=== PATIENT | male | born 1965 | race Caucasian/White ===

== ENCOUNTER 2017-05-22 14:55 | Inpatient (IN) | payer OTHER ==
[~2017-05-22] VITALS: Ht 195.6 cm; Wt 171.4 kg
[2017-05-22 15:44] LABS: MEAN CORPUSCULAR HEMOGLOBIN 27.8 pg (27.5-34.5); MEAN CORPUSCULAR HGB CONC 33.6 g/dL (33.2-36.2); MEAN CORPUSCULAR VOLUME 82.7 fL (81-97); MEAN PLATELET VOLUME 8.7 fL (7.4-10.4); PLATELET COUNT 253 x10^3/uL (130-400); RED BLOOD COUNT 5.66 x10^6/uL (4.38-5.82)
[2017-05-22 15:56] LABS: ALANINE AMINOTRANSFERASE 42 U/L (12-78); ALBUMIN 3.7 g/dL (3.4-5.0); ANION GAP 10 mmol/L (5-15); CALCIUM 7.9 mg/dL (8.5-10.1); CHLORIDE 106 mmol/L (98-107)
[2017-05-22 16:02] LABS: MD YES
[2017-05-22 16:04] LABS: BAND#(MANUAL) 0.97 x10^3/uL; BANDS%(MANUAL) 8 % (0-7); METAMYELOCYTES# (MANUAL) 0.24 x10^3/uL (0-0); METAMYELOCYTES% (MANUAL) 2 % (0-1); MONOS#(MANUAL) 0.12 x10^3/uL (0.3-2.7); MONOS% (MANUAL) 1 % (2-9)
[2017-05-22 16:05] LABS: <PLATELET ESTIMATE> ADEQUATE; <PLT MORPHOLOGY> NORMAL PLT MORPH; <RBC MORPHOLOGY> NORMAL; LYMPH#(MANUAL) 0.12 x10^3/uL (1-3.4); LYMPHS% (MANUAL) 1 % (22-44); SEGS% (MANUAL) 88 % (42-75)
[2017-05-22] MEDS ORDERED: MORPHINE SULFATE 4 MG/ML, 1ML ONE (16:07)
[2017-05-22] MEDS ORDERED: ONDANSETRON 2MG/ML, 2ML ONE (16:07)
[2017-05-22 16:17] LABS: ALKALINE PHOSPHATASE 90 U/L (45-117); BILIRUBIN,TOTAL 0.8 mg/dL (0.2-1.0); CREATININE 1.18 mg/dL (0.7-1.3); TOTAL PROTEIN 7.9 g/dL (6.4-8.2); TROPONIN I < 0.015 ng/mL (0.000-0.045)
[2017-05-22] MEDS ORDERED: CEFTRIAXONE PMX 1GM/50ML 50 ML ONE (16:24)
[2017-05-22] MEDS ORDERED: ONDANSETRON 2MG/ML, 2ML IVPush ONE (16:30)
[2017-05-22] MEDS ORDERED: CEFTRIAXONE PMX 1GM/50ML 50 ML IV ONE (16:30)
[2017-05-22] MEDS ORDERED: AZITHROMYCIN 500 MG in SODIUM CHLORIDE 0.9% 250 ML IV ONE (16:30)
[2017-05-22] MEDS ORDERED: morphine SULFATE 10 MG/ML, 1ML IVPush ONE (16:30)
[2017-05-22] MEDS ORDERED: PROMETHAZINE 25 MG/ML, 1ML ONE (17:55)
[2017-05-22] MEDS ORDERED: PROMETHAZINE 25 MG/ML, 1ML IM ONE (18:00)
[2017-05-22] MEDS ORDERED: ONDANSETRON ODT 4 MG PO PRN (18:30)
[2017-05-22] MEDS ORDERED: ONDANSETRON 2MG/ML, 2ML IVPush PRN (18:30)
[2017-05-22] MEDS ORDERED: GUAIFENESIN/DM 200-20MG, 10ML UDC PO PRN (18:30)
[2017-05-22] MEDS ORDERED: PROMETHAZINE 25 MG/ML, 1ML IM PRN (18:30)
[2017-05-22] MEDS ORDERED: METOCLOPRAMIDE 5 MG/ML, 2ML IVPush PRN (18:30)
[2017-05-22] MEDS ORDERED: LABETALOL 5MG/ML, 20ML IVPush PRN (18:30)
[2017-05-22] MEDS ORDERED: ENALAPRILAT 1.25 MG/ML, 2ML IVPush PRN (18:30)
[2017-05-22 19:20] VITALS: BP 131/81
[2017-05-22 19:38] VITALS: BP 131/81
[2017-05-22] MEDS: SODIUM CHLORIDE 0.9% 1,000 ML IV SCH (20:01)
[2017-05-22] MEDS: GUAIFENESIN 200 MG TABLET PO SCH (20:01)
[2017-05-22] MEDS: ENOXAPARIN 40 MG/0.4 ML SQ SCH (20:01)
[2017-05-22 21:58] LABS: CLOSTRIDIUM DIFFICILE ANTIGEN NEGATIVE; CLOSTRIDIUM DIFFICILE TOXIN NEGATIVE (Negative)
[2017-05-22] MEDS: DIPHENOXYLATE/ATROPINE TABLET PO PRN (23:36)
[2017-05-23 00:38] VITALS: BP 132/75
[2017-05-23 04:49] LABS: BASOPHILS # (AUTO) 0.01 x10^3/uL (0-0.1); BASOPHILS % (AUTO) 0 % (0-1); EOSINOPHILS % (AUTO) 0 % (1-7); LYMPHOCYTES # (AUTO) 0.55 x10^3/uL (1-3.4); LYMPHOCYTES % (AUTO) 6 % (22-44); MD NO; MEAN CORPUSCULAR HEMOGLOBIN 28.1 pg (27.5-34.5); MEAN CORPUSCULAR HGB CONC 34.1 g/dL (33.2-36.2); MEAN CORPUSCULAR VOLUME 82.5 fL (81-97); MEAN PLATELET VOLUME 8.7 fL (7.4-10.4); MONOCYTES # (AUTO) 0.58 x10^3/uL (0.2-0.8); MONOCYTES % (AUTO) 6 % (2-9); NEUTROPHILS # (AUTO) 8.65 x10^3/uL (1.8-6.8); NEUTROPHILS % (AUTO) 88 % (42-75); PLATELET COUNT 234 x10^3/uL (130-400); RED BLOOD COUNT 5.06 x10^6/uL (4.38-5.82); RED CELL DISTRIBUTION WIDTH 15.2 % (9.4-14.8)
[2017-05-23 04:54] LABS: CALCIUM 7.4 mg/dL (8.5-10.1); CHLORIDE 106 mmol/L (98-107)
[2017-05-23 05:00] LABS: ALANINE AMINOTRANSFERASE 34 U/L (12-78); ALBUMIN 3.3 g/dL (3.4-5.0); ALKALINE PHOSPHATASE 76 U/L (45-117); ANION GAP 8 mmol/L (5-15); BILIRUBIN,TOTAL 0.8 mg/dL (0.2-1.0); CREATININE 1.33 mg/dL (0.7-1.3); TOTAL PROTEIN 7.1 g/dL (6.4-8.2)
[2017-05-23] MEDS: GUAIFENESIN 200 MG TABLET PO SCH ×4 (05:31→20:05)
[2017-05-23] MEDS: DIPHENOXYLATE/ATROPINE TABLET PO PRN ×3 (05:31→18:38)
[2017-05-23 08:00] VITALS: BP 138/87
[2017-05-23] MEDS: SODIUM CHLORIDE 0.9% 1,000 ML IV SCH (09:20)
[2017-05-23 09:59] LABS: RAPID INFLUENZA A Negative (Negative); RAPID INFLUENZA B Negative (Negative)
[2017-05-23] MEDS ORDERED: MAGNESIUM SULFATE PMX 4GM/100M 100 ML IV ONE (11:00)
[2017-05-23] MEDS: POTASSIUM CHLORIDE 20 MEQ TAB.ER.PRT PO SCH ×2 (11:32→20:05)
[2017-05-23 14:30] VITALS: BP 144/72
[2017-05-23] MEDS: LOPERAMIDE 2 MG CAPSULE PO PRN ×2 (17:08→23:03)
[2017-05-23] MEDS: AZITHROMYCIN 500 MG in SODIUM CHLORIDE 0.9% 250 ML IV SCH (18:35)
[2017-05-23 19:46] VITALS: BP 151/97
[2017-05-23] MEDS: CEFTRIAXONE PMX 2GM/50ML 50 ML IV SCH (20:04)
[2017-05-23] MEDS: ENOXAPARIN 40 MG/0.4 ML SQ SCH (20:05)
[2017-05-24] MEDS: SODIUM CHLORIDE 0.9% 1,000 ML IV SCH ×3 (01:29→18:00)
[2017-05-24 03:30] VITALS: BP_SYST 118; BP_SYST 179; BP_DIAS 110; BP_DIAS 112
[2017-05-24] MEDS: DIPHENOXYLATE/ATROPINE TABLET PO PRN ×3 (03:42→14:01)
[2017-05-24 04:24] VITALS: BP 160/92
[2017-05-24 05:00] LABS: BASOPHILS # (AUTO) 0.01 x10^3/uL (0-0.1); BASOPHILS % (AUTO) 0 % (0-1); EOSINOPHILS # (AUTO) 0.02 x10^3/uL (0-0.4); EOSINOPHILS % (AUTO) 0 % (1-7); LYMPHOCYTES # (AUTO) 1.25 x10^3/uL (1-3.4); LYMPHOCYTES % (AUTO) 21 % (22-44); MD NO; MEAN CORPUSCULAR HEMOGLOBIN 28.1 pg (27.5-34.5); MEAN CORPUSCULAR HGB CONC 33.8 g/dL (33.2-36.2); MEAN CORPUSCULAR VOLUME 83.1 fL (81-97); MEAN PLATELET VOLUME 8.6 fL (7.4-10.4); MONOCYTES # (AUTO) 0.79 x10^3/uL (0.2-0.8); MONOCYTES % (AUTO) 13 % (2-9); NEUTROPHILS # (AUTO) 3.84 x10^3/uL (1.8-6.8); NEUTROPHILS % (AUTO) 65 % (42-75); PLATELET COUNT 220 x10^3/uL (130-400); RED BLOOD COUNT 4.83 x10^6/uL (4.38-5.82)
[2017-05-24 05:10] LABS: ALBUMIN 3.1 g/dL (3.4-5.0); CALCIUM 7.5 mg/dL (8.5-10.1); CHLORIDE 107 mmol/L (98-107)
[2017-05-24 05:22] VITALS: BP 138/62
[2017-05-24 05:24] LABS: ALANINE AMINOTRANSFERASE 36 U/L (12-78); ALKALINE PHOSPHATASE 77 U/L (45-117); ANION GAP 8 mmol/L (5-15); BILIRUBIN,TOTAL 0.4 mg/dL (0.2-1.0); CREATININE 1.06 mg/dL (0.7-1.3)
[2017-05-24] MEDS: GUAIFENESIN 200 MG TABLET PO SCH ×4 (05:28→20:12)
[2017-05-24] MEDS ORDERED: ACETAMINOPHEN 325 MG TABLET PO PRN (05:30)
[2017-05-24] MEDS: LOPERAMIDE 2 MG CAPSULE PO PRN ×3 (05:30→16:47)
[2017-05-24 07:19] VITALS: BP 133/82
[2017-05-24 11:26] LABS: MICROSCOPIC INDICATED
[2017-05-24 11:48] LABS: CULTURE INDICATED? NO
[2017-05-24 13:20] VITALS: BP 156/86
[2017-05-24] MEDS: CEFTRIAXONE PMX 2GM/50ML 50 ML IV SCH (17:16)
[2017-05-24] MEDS: LACTOBACILLUS 1GM/ PACKET PO SCH ×2 (18:00→20:12)
[2017-05-24] MEDS ORDERED: POTASSIUM PHOSPHATE 22 MEQ in SODIUM CHLORIDE 0.9% 500 ML IV ONE (18:00)
[2017-05-24] MEDS: AZITHROMYCIN 500 MG in SODIUM CHLORIDE 0.9% 250 ML IV SCH (18:06)
[2017-05-24 19:30] VITALS: BP 154/96
[2017-05-24] MEDS: ENOXAPARIN 40 MG/0.4 ML SQ SCH (20:12)
[2017-05-25 03:36] VITALS: BP 134/89
[2017-05-25 04:52] LABS: ANION GAP 9 mmol/L (5-15); CHLORIDE 107 mmol/L (98-107)
[2017-05-25] MEDS: GUAIFENESIN 200 MG TABLET PO SCH ×3 (04:52→16:00)
[2017-05-25 04:54] LABS: CREATININE 0.83 mg/dL (0.7-1.3)
[2017-05-25 07:30] VITALS: BP 143/90
[2017-05-25] MEDS: SODIUM CHLORIDE 0.9% 1,000 ML IV SCH ×2 (07:49→16:00)
[2017-05-25] MEDS: LACTOBACILLUS 1GM/ PACKET PO SCH ×2 (07:49→16:00)
[2017-05-25 14:33] VITALS: BP 169/107
[2017-05-25 14:38] VITALS: BP 162/94
[2017-05-25] MEDS ORDERED: ACET325T14 PO (16:00)
[2017-05-25] MEDS ORDERED: LOPE2CAP PO (16:00)
[2017-05-25] MEDS ORDERED: CEFD300C37 PO (16:00)
[2017-05-25] MEDS ORDERED: ACID1GRA3 PO (16:00)
[2017-05-25] MEDS ORDERED: AZIT500T PO (16:00)
[2017-05-25] MEDS ORDERED: LOSA25TA2 PO (16:02)
[2017-05-25] MEDS ORDERED: FLU VACC QS2017-18 (36MOS+) UP/PF 0.5 ML IM-VACC ONE (17:00)
[2017-05-25] MEDS ORDERED: PNEUMOCOCCAL 23 VACCINE IM-VACC ONE (17:00)
== END 2017-05-25 18:12 | disposition home or self-care (01) | DRG 871 ==
LOC: ED 17:30 → EDIP 17:31 → ED 17:55 → 3NW 19:10
PROVIDERS: ADMIT Internal Medicine Pulmonary Disease; ATTEND Internal Medicine Pulmonary Disease
DX: A41.9 Sepsis, unspecified organism (principal); G93.41 Metabolic encephalopathy; J96.01 Acute respiratory failure with hypoxia; N17.0 Acute kidney failure with tubular necrosis; I11.0 Hypertensive heart disease with heart failure; J18.9 Pneumonia, unspecified organism; I50.32 Chronic diastolic (congestive) heart failure; J44.0 Chronic obstructive pulmonary disease with (acute) lower respiratory infection; Z68.41 Body mass index [BMI] 40.0-44.9, adult; E66.01 Morbid (severe) obesity due to excess calories; E83.42 Hypomagnesemia; E86.0 Dehydration; E87.6 Hypokalemia; G47.33 Obstructive sleep apnea (adult) (pediatric); I35.1 Nonrheumatic aortic (valve) insufficiency; Z91.14 Patient's other noncompliance with medication regimen; Z79.899 Other long term (current) drug therapy; Z90.49 Acquired absence of other specified parts of digestive tract; Z88.0 Allergy status to penicillin; Z88.2 Allergy status to sulfonamides
CPT/HCPCS: 36415; 70450; 71045; 80048; 80053; 81001; 83605; 83690; 83735; 83880; 84100; 84145; 84443; 84484; 85025; 87040; 87046; 87324; 87400; 87899; 89055; 90686; 90732; 93306; 96365; 96366; 96368; 96372; 96375; J0456; J0696; J1650; J2405; J2550; J2270; J3475; J7030; J7040; J7050